=== PATIENT | male | born 1995 | race Caucasian/White ===

== ENCOUNTER 2023-07-29 13:03 | Emergency (ER) | payer MEDICAID, SELFPAY ==
[2023-07-29 13:12] VITALS: BP 141/73; PULSE 79; RESP 14; TEMP 37.1; O2SAT 97; BMI 21.7
--- NOTE | 2023-07-29 13:26 | ED.SKABFB1 ---
HPI - Skin/Abscess/Foreign Bdy General Chief complaint: Skin/Abscess/Foreign Body Stated complaint: MOUTH PAIN Time Seen by Provider: 07/29/23 13:23 Source: patient Mode of arrival: walk-in Limitations: no limitations History of Present Illness HPI narrative: 28-year-old male presents for swelling to his right upper lip. He had a pimple there and he squeezed it and green pus came out. He went to bed and when he woke up it was swollen at the right upper lip. No difficulty breathing or swallowing. No fever. The pain is moderate and continuous. Related Data Home Medications Medication Instructions Recorded Confirmed No Known Home Medications 07/29/23 07/29/23 Previous Rx's Medication Instructions Recorded cephalexin 500 mg capsule 500 mg PO QID 10 days #40 caps 07/29/23 sulfamethoxazole 800 1 tab PO BID 10 days #20 tabs 07/29/23 mg-trimethoprim 160 mg tablet (Bactrim DS) Allergies Allergy/AdvReac Type Severity Reaction Status Date / Time No Known Drug Allergies Allergy Verified 07/29/23 13:12 Review of Systems ROS Narrative A ten point review of systems is negative except as noted above. Exam Narrative Exam Narrative: Nurses note and vital signs reviewed and patient is not hypoxic. General: The patient appears well and in no apparent distress. Patient is resting comfortably on cart. Skin: Warm, dry, no pallor noted. There is no rash noted. Head: Normocephalic, atraumatic Eye: Normal conjunctiva, no drainage Ears, Nose, Mouth, and Throat: oral mucosa is moist. Nares patent. Swelling present of the right upper lip. There is no fluctuance or open area or drainage. No swelling intraorally. Cardiovascular: Regular Rate and Rhythm Respiratory: Patient is in no distress, no accessory muscle use, lungs are clear to auscultation, no wheezing, rales or rhonchi Back: non-tender GI: Soft and nontender Musculoskeletal: The patient has no evidence of calf tenderness, no pitting edema, symmetrical pulses noted bilaterally Neurological: A&O, normal speech Psychiatric: Cooperative Constitutional Vital Signs, click to edit/add: Last Vital Signs Temp 98.7 F 07/29/23 13:12 Pulse 79 07/29/23 13:12 Resp 14 07/29/23 13:12 BP 141/73 07/29/23 13:12 Pulse Ox 97 07/29/23 13:12 O2 Del Method Room Air 07/29/23 13:12 Course Vital Signs Vital signs: Vital Signs Temperature 98.7 F 07/29/23 13:12 Pulse Rate 79 07/29/23 13:12 Respiratory Rate 14 07/29/23 13:12 Blood Pressure 141/73 07/29/23 13:12 Pulse Oximetry 97 07/29/23 13:12 Oxygen Delivery Method Room Air 07/29/23 13:12 Temperature 98.7 F 07/29/23 13:12 Pulse Rate 79 07/29/23 13:12 Respiratory Rate 14 07/29/23 13:12 Blood Pressure 141/73 07/29/23 13:12 Pulse Oximetry 97 07/29/23 13:12 Oxygen Delivery Method Room Air 07/29/23 13:12 MDM - Skin/Abscess/Foreign Bdy MDM Narrative Medical decision making narrative: Incision and drainage is not indicated. He was given IV clindamycin and will be discharged home on Bactrim and Keflex. Treatment diagnosis and follow-up were discussed with the patient. Differential Diagnosis Differential diagnosis: Likely abscess of skin or subcutaneous tissue, cellulitis and impetigo Discharge Plan Discharge Stand Alone Forms: Portal Instructions Chief Complaint: Skin/Abscess/Foreign Body Clinical Impression: Cellulitis Patient Disposition: Home, Self-Care Time of Disposition Decision: 13:38 Condition: Good Mode of Transportation: Private Vehicle Prescriptions / Home Meds: New sulfamethoxazole-trimethoprim [Bactrim DS] 800-160 mg tablet 1 tab PO BID 10 Days Qty: 20 0RF cephalexin 500 mg capsule 500 mg PO QID 10 Days Qty: 40 0RF No Action No Known Home Medications Instructions: Cellulitis (ED), Warm Compress or Soak (ED) Additional Instructions: Warm compress for 10 to 15 minutes 4 times a day Referrals: Alma Rosa Gallagher NP [Primary Care Provider] - 1 week
[2023-07-29] MEDS: CLINDAMYCIN PHOSPHATE/D5W 900 MG/50 ML PIGGYBACK 100 MG IV (13:38)
[2023-07-29 15:09] VITALS: PULSE 75; RESP 14; O2SAT 98
== END 2023-07-29 15:11 | disposition home or self-care (01) ==
PROVIDERS: Emergency Provider Emergency Medicine; PCP Nurse Practitioner
DX: K13.0 Diseases of lips (principal)
CPT/HCPCS: 96365; 99284